=== PATIENT | female | born 1950 | race Caucasian/White ===

== ENCOUNTER 2022-10-18 07:51 | Emergency (ER) | payer OTHER ==
[~2022-10-18] VITALS: Ht 165.1 cm; Wt 54.9 kg
[2022-10-18] MEDS ORDERED: ATORVASTATIN CA10 MG PO (08:32)
[2022-10-18] MEDS ORDERED: PAXLOVID 300-11 EACH PO (10:27)
[2022-10-18] MEDS ORDERED: TUSNEL LIQUID178 ML PO (10:27)
[2022-10-18] MEDS ORDERED: DOLOGEN CAPLET1 EACH PO (10:28)
== END 2022-10-18 10:31 | disposition home or self-care (01) ==
LOC: ER 07:51
DX: U07.1 COVID-19 (principal); R53.81 Other malaise

== ENCOUNTER 2023-05-03 13:08 | Outpatient (CLI) | payer OTHER ==
[~2023-05-03 13:08] MED LIST: ATORVASTATIN CA10 MG PO; DOLOGEN CAPLET1 EACH PO; PAXLOVID 300-11 EACH PO; TUSNEL LIQUID178 ML PO
== END 2023-05-03 13:09 | disposition home or self-care (01) ==
LOC: MAMO-SONO 13:08
PROVIDERS: ATTEND General Practice
DX: Z12.31 Encounter for screening mammogram for malignant neoplasm of breast (principal)

== ENCOUNTER 2023-06-04 08:25 | Outpatient (CLI) | payer OTHER | END 2023-06-04 08:33 | disposition home or self-care (01) | LOC: MAMO-SONO 08:25 | PROVIDERS: ATTEND General Practice | DX: R92.8 Other abnormal and inconclusive findings on diagnostic imaging of breast (principal); R92.2 Inconclusive mammogram ==

== ENCOUNTER 2023-11-08 15:00 | Emergency (ER) | payer OTHER ==
[~2023-11-08] VITALS: Ht 154.9 cm; Wt 54.9 kg
[2023-11-08] MEDS ORDERED: TETANUS & DIPHTHERIA TOX,ADULT 0.5 ML VIAL IM ONE (16:00)
[2023-11-08] MEDS ORDERED: AMOX1TAB5 PO (16:03)
[2023-11-08] MEDS ORDERED: DESITIN57 G1 TOP (16:03)
[2023-11-08] MEDS ORDERED: TETANUS DIPHTHERIA TOX. ADSOR 5 ML VIAL IM ONE (16:10)
== END 2023-11-08 16:21 | disposition home or self-care (01) ==
LOC: ER 15:01
DX: L08.89 Other specified local infections of the skin and subcutaneous tissue (principal); L03.012 Cellulitis of left finger; I10 Essential (primary) hypertension

== ENCOUNTER 2023-11-27 09:25 | Emergency (ER) | payer OTHER ==
[~2023-11-27] VITALS: Ht 154.9 cm; Wt 56.2 kg
[~2023-11-27 09:25] MED LIST changes: +AMOX1TAB5 PO; +DESITIN57 G1 TOP
[2023-11-27] MEDS ORDERED: BENADRYL25 MG PO (13:09)
[2023-11-27] MEDS ORDERED: TEARS LUBRICANT15 ML OP (13:09)
== END 2023-11-27 13:25 | disposition home or self-care (01) ==
LOC: ER 09:27
DX: H53.141 Visual discomfort, right eye (principal)

== ENCOUNTER 2024-06-26 07:58 | Outpatient (CLI) | payer OTHER ==
[~2024-06-26 07:58] MED LIST changes: +BENADRYL25 MG PO; +TEARS LUBRICANT15 ML OP
== END 2024-06-26 07:59 | disposition home or self-care (01) ==
LOC: MAMO-SONO 07:58
PROVIDERS: ATTEND General Practice
DX: Z12.31 Encounter for screening mammogram for malignant neoplasm of breast (principal)